=== PATIENT | male | born 1975 | race Caucasian/White ===

== ENCOUNTER 2018-04-27 19:03 | Emergency (ER) | payer MEDICAID ==
[~2018-04-27] VITALS: Ht 180.3 cm; Wt 79.5 kg
[2018-04-27 19:26] LABS: BASOPHILS # (AUTO) 0.1 X10'3 (0-0.2); BASOPHILS % (AUTO) 0.6 % (0-1); EOSINOPHILS # (AUTO) 0.1 X10'3 (0-0.9); EOSINOPHILS % (AUTO) 1.3 % (0-6); HEMATOCRIT 41.7 % (42.0-52.0); HEMOGLOBIN 14.2 g/dl (14.0-17.9); LYMPHOCYTES # (AUTO) 2.4 X10'3 (1.1-4.8); LYMPHOCYTES % (AUTO) 24.8 % (21-51); MEAN CORPUSCULAR HEMOGLOBIN 28.2 PG (27.0-31.0); MEAN CORPUSCULAR HGB CONC 33.9 % (33.0-36.5); MEAN CORPUSCULAR VOLUME 83.2 FL (78-98); MONOCYTES # (AUTO) 0.7 X10'3 (0-0.9); MONOCYTES % (AUTO) 7.4 % (2-12); NEUTROPHILS # (AUTO) 6.5 X10'3 (1.8-7.7); NEUTROPHILS % (AUTO) 65.9 % (42-75); PLATELET COUNT 233 X10'3 (140-440); RED BLOOD COUNT 5.02 X10'6 (4.70-6.10); RED CELL DISTRIBUTION WIDTH 13.8 % (11.5-14.5); WHITE BLOOD COUNT 9.9 X10'3 (4.5-11.0)
[2018-04-27 19:35] LABS: INR 0.9 INR; PARTIAL THROMBOPLASTIN TIME 27 SECONDS (22-32); PROTHROMBIN TIME 9.6 SECONDS (9.0-12.0)
[2018-04-27] MEDS ORDERED: acetaminophen 325mg tablet PO ONE (19:50)
[2018-04-27 19:51] LABS: ALANINE AMINOTRANSFERASE 19 U/L (12-78); ALBUMIN 3.5 G/DL (3.4-5.0); ALKALINE PHOSPHATASE 117 IU/L (46-116); ANION GAP 8 (8-16); ASPARTATE AMINO TRANSFERASE 22 U/L (10-37); BILIRUBIN,TOTAL 0.1 MG/DL (0.1-1.0); BLOOD UREA NITROGEN 13 MG/DL (7-18); BUN/CREATININE RATIO 11.5 (5.4-32.0); CALCIUM 8.9 MG/DL (8.5-10.1); CHLORIDE 105 MMOL/L (99-107); CREATININE 1.13 MG/DL (0.60-1.10); GLUCOSE 101 MG/DL (70-104); POTASSIUM 4.2 MMOL/L (3.5-5.1); SODIUM 138 MMOL/L (135-145); TOTAL CARBON DIOXIDE 24.7 MMOL/L (24-32); eGFR 71 ML/MIN
[2018-04-27 20:46] VITALS: BP 110/64
== END 2018-04-27 20:48 | disposition home or self-care (01) ==
LOC: ER 19:03
DX: R07.9 Chest pain, unspecified (principal); F17.200 Nicotine dependence, unspecified, uncomplicated; F12.90 Cannabis use, unspecified, uncomplicated; Z56.0 Unemployment, unspecified
CPT/HCPCS: 36415; 71045; 80053; 84484; 85025; 85610; 85730; 93005; 99285

== ENCOUNTER 2019-01-17 11:05 | Emergency (ER) | payer MEDICAID ==
[~2019-01-17] VITALS: Ht 180.3 cm; Wt 77.3 kg
[2019-01-17 11:47] LABS: BASOPHILS % (AUTO) 0.9 % (0-1); HEMATOCRIT 36.4 % (42.0-52.0); HEMOGLOBIN 12.2 g/dl (14.0-17.9); LYMPHOCYTES # (AUTO) 1.2 X10'3 (1.1-4.8); LYMPHOCYTES % (AUTO) 22.9 % (21-51); MEAN CORPUSCULAR HEMOGLOBIN 27.4 PG (27.0-31.0); MEAN CORPUSCULAR HGB CONC 33.6 g/dL (33.0-36.5); MEAN CORPUSCULAR VOLUME 81.4 FL (78-98); MEAN PLATELET VOLUME 6.9 FL (7.4-10.4); MONOCYTES # (AUTO) 0.7 X10'3 (0-0.9); NEUTROPHILS # (AUTO) 3.2 X10'3 (1.8-7.7); NEUTROPHILS % (AUTO) 62.2 % (42-75); PLATELET COUNT 225 X10'3 (140-440); RED BLOOD COUNT 4.48 X10'6 (4.70-6.10); RED CELL DISTRIBUTION WIDTH 14.1 % (11.5-14.5); WHITE BLOOD COUNT 5.1 X10'3 (4.5-11.0)
[2019-01-17 11:55] LABS: ALANINE AMINOTRANSFERASE 54 U/L (12-78); ALBUMIN 3.8 G/DL (3.4-5.0); ALBUMIN/GLOBULIN RATIO 1.1 (1.1-1.5); ALKALINE PHOSPHATASE 83 IU/L (46-116); ANION GAP 10 (8-16); ASPARTATE AMINO TRANSFERASE 49 U/L (10-37); BILIRUBIN,TOTAL 0.3 MG/DL (0.1-1.0); BLOOD UREA NITROGEN 22 MG/DL (7-18); BUN/CREATININE RATIO 21.4 (5.4-32.0); CALCIUM 9.1 MG/DL (8.5-10.1); CHLORIDE 102 MMOL/L (99-107); CREATININE 1.03 MG/DL (0.60-1.10); GLUCOSE 96 MG/DL (70-104); POTASSIUM 4.1 MMOL/L (3.5-5.1); SODIUM 139 MMOL/L (135-145); TOTAL CARBON DIOXIDE 27.2 MMOL/L (24-32); TOTAL PROTEIN 7.4 G/DL (6.4-8.2); eGFR 79 ML/MIN
[2019-01-17 12:03] LABS: ETHANOL < 0.010 GM/DL (0.0-0.010)
--- NOTE | 2019-01-17 12:35 | NUR ---
Patient was given a cup of water and sandwich. Patient took a quick drink of the water then he threw the cup on the floor. He took a large bite of the sandwich then he started smearing the sandwich on his face and in his hair.
[2019-01-17] MEDS ORDERED: diphenhydrAMINE 50 mg/ml inj IM ONE (12:45)
[2019-01-17] MEDS ORDERED: haloperidol lactate 5mg/ml inj IM ONE (12:45)
[2019-01-17] MEDS ORDERED: LORazepam 2 mg/ml vial IM ONE (12:45)
--- NOTE | 2019-01-17 12:50 | NUR ---
Patient refusing to give a urine sample
--- NOTE | 2019-01-17 14:19 | NUR ---
patient sleeping in room
[2019-01-17 14:40] LABS: CLARITY,URINE CLEAR (Clear); COLOR,URINE STRAW (Yellow); GLUCOSE, URINE NEGATIVE (Neg); KETONES,URINE NEGATIVE (Neg); LEUKOCYTE ESTERASE ,URINE TRACE (Neg); NITRITES, URINE NEGATIVE (Neg); OCCULT BLOOD,URINE NEGATIVE (Neg); PH,URINE 6.5 (4.8-8.0); PROTEIN,URINE NEGATIVE (Neg); UROBILINOGEN,URINE 0.2 E.U/dL (0.2-1.0)
[2019-01-17 14:43] LABS: UA COLLECTION TYPE STRAIGHT CATH
[2019-01-17 14:46] LABS: SQUAMOUS EPITHELIAL CELL,UR NONE SEEN /LPF (FEW)
[2019-01-17 14:47] LABS: BACTERIA,URINE FEW /HPF (Neg); RBC,URINE 0-2 /HPF (0-2); RENAL CELLS, URINE FEW /HPF; WBC,URINE 0-4 /HPF (0-4)
[2019-01-17 14:59] LABS: URINE AMPHETAMINE SCREEN POSITIVE (Neg); URINE BARBITUATE SCREEN NEGATIVE (Neg); URINE BENZODIAZEPINES SCREEN NEGATIVE (Neg); URINE CANNABINOID SCREEN POSITIVE (Neg); URINE COCAINE SCREEN NEGATIVE (Neg); URINE METHADONE SCREEN NEGATIVE (Neg); URINE OPIATE SCREEN NEGATIVE (Neg); URINE PHENCYCLIDINE SCREEN NEGATIVE (Neg)
--- NOTE | 2019-01-17 16:06 | NUR ---
Patient's mother is on the phone giving patients history. She states that the patient use to live [place] and he was on a very theraputic medication regimen. She states that he was on Haldol 1500 mg monthly and 10 mg daily, 1 mg benztropine daily. However since he moved up here his medications have been changed to invega and he he has been gravely disabled since the switch.
--- NOTE | 2019-01-17 16:30 | NUR ---
Behavioral health floor notified of patients status, history, current medications and prior medications.
--- NOTE | 2019-01-17 18:48 | NUR ---
PT SLEEPING AT THIS TIME. WILL CONTINUE TO MONITOR. NO DISTRESS NOTED AT THIS TIME. EQUAL RISE AND FALL OF CHEST.
--- NOTE | 2019-01-17 19:55 | NUR ---
PT UP OUT OF BED AND AMBULATORY TO RESTROOM - UPON RETURNING HE ASKS FOR FOOD. PT IS GIVEN SANDWICH, CHEESE STICK AND WATER. ATTEMPTED TO GIVE PT SOCKS HE IS BAREFOOTED AND FEET ARE DIRTY. PT DECLINES TO WEAR SOCKS AT THIS TIME. SOCKS LEFT AT BEDSIDE. [facility] AWARE THAT PT IS NOW AWAKE - THEY ARE WORKING ON WRITING HIS 0822
--- NOTE | 2019-01-17 21:34 | NUR ---
PT SLEEPING AT THIS TIME. WILL CONTINUE TO MONITOR. - PT WAS NOT COOPERATIVE WITH EARLIER ATTEMPT AT ASSESSMENT. HE DID NOT WANT TO ANSWER QUESTIONS AT THAT TIME.
--- NOTE | 2019-01-17 22:25 | NUR ---
NO NEEDS AT THIS TIME. PT CONTINUES TO SLEEP. PT FREQUENTLY SELF POSITIONS
--- NOTE | 2019-01-17 22:40 | NUR ---
[facility] CALLED FOR REPORT - INFO PROVIDED, THEY WILL CALL BACK
--- NOTE | 2019-01-18 01:35 | NUR ---
SPOKE AGAIN WITH [facility] - THEY WERE AGAIN GIVEN PT INFO. THEY WEREN'T AWARE SOMEONE HAD CALLED EARLIER. THEY STATED THEY WOULD GET BACK TO US IN THE MORNING TO SEE IF PT WAS A CANDIDATE.
--- NOTE | 2019-01-18 02:19 | NUR ---
pt continues to sleep. no distress noted. will continue to monitor.
[2019-01-18 04:28] VITALS: BP 122/68
--- NOTE | 2019-01-18 04:50 | NUR ---
PT AWAKENED AND WALKED TO BATHROOM THEN BACK TO BED. VITALS UPDATED.
--- NOTE | 2019-01-18 09:41 | NUR ---
pt is in bed supine, worried about a gas leak blowing up his house, he was assured that everything at home is ok, mom has been warned
--- NOTE | 2019-01-18 10:01 | NUR ---
SPOKE TO [facility] AT [facility], PT HAS BEEN ACCEPTED AT [facility], HE WILL BE PICKED UP IN ABOUT 45 MINS
--- NOTE | 2019-01-18 10:34 | NUR ---
pt is in bed holding tight to his BIBLE, NO S/S OF DISTRESS OBSERVED
== END 2019-01-18 11:09 ==
LOC: ER 11:05
DX: F25.0 Schizoaffective disorder, bipolar type (principal); F29 Unspecified psychosis not due to a substance or known physiological condition; F12.90 Cannabis use, unspecified, uncomplicated; Z56.0 Unemployment, unspecified
CPT/HCPCS: 36415; 80053; 80305; 80320; 81001; 84443; 85025; 96372; 99285; J1200; J1630; J2060; 51702

== ENCOUNTER 2020-09-21 10:05 | Emergency (ER) | payer MEDICAID ==
[~2020-09-21] VITALS: Ht 180.3 cm; Wt 75.0 kg
--- NOTE | 2020-09-21 10:52 | NUR ---
Pt given a urinal to obtain a urine sample. Pt threw the urinal across the room stating, "I ain't giving piss and I ain't giving blood".
[2020-09-21] MEDS ORDERED: LORazepam 2 mg/ml vial IM ONE (11:05)
[2020-09-21] MEDS ORDERED: diphenhydrAMINE 50 mg/ml inj IM ONE (11:05)
[2020-09-21] MEDS ORDERED: haloperidol lactate 5mg/ml inj IM ONE (11:05)
[2020-09-21 11:40] LABS: CLARITY,URINE CLEAR (Clear); COLOR,URINE YELLOW (Yellow); GLUCOSE, URINE NEGATIVE (Neg); KETONES,URINE 40 mg/dl (Neg); LEUKOCYTE ESTERASE ,URINE NEGATIVE (Neg); NITRITES, URINE NEGATIVE (Neg); OCCULT BLOOD,URINE SMALL (Neg); PROTEIN,URINE TRACE mg/dl (Neg)
--- NOTE | 2020-09-21 11:40 | NUR ---
Blood and urine obtained from pt and sent to the lab.
[2020-09-21 11:46] LABS: BASOPHILS % (AUTO) 0.4 % (0-1); EOSINOPHILS % (AUTO) 0.2 % (0-6); HEMATOCRIT 40.7 % (42.0-52.0); HEMOGLOBIN 13.6 g/dl (14.0-17.9); LYMPHOCYTES # (AUTO) 1.1 X10'3 (1.1-4.8); LYMPHOCYTES % (AUTO) 9.3 % (21-51); MEAN CORPUSCULAR HEMOGLOBIN 28.1 PG (27.0-31.0); MEAN CORPUSCULAR HGB CONC 33.5 g/dL (33.0-36.5); MEAN CORPUSCULAR VOLUME 83.9 FL (78-98); MEAN PLATELET VOLUME 6.6 FL (7.4-10.4); MONOCYTES # (AUTO) 1.1 X10'3 (0-0.9); MONOCYTES % (AUTO) 9.3 % (2-12); NEUTROPHILS # (AUTO) 9.5 X10'3 (1.8-7.7); NEUTROPHILS % (AUTO) 80.8 % (42-75); PLATELET COUNT 236 X10'3 (140-440); RED BLOOD COUNT 4.85 X10'6 (4.70-6.10); RED CELL DISTRIBUTION WIDTH 13.7 % (11.5-14.5); WHITE BLOOD COUNT 11.8 X10'3 (4.5-11.0)
[2020-09-21 11:47] LABS: UA COLLECTION TYPE URINAL
[2020-09-21 11:48] LABS: RBC,URINE 0-2 /HPF (0-2)
[2020-09-21 11:49] LABS: BACTERIA,URINE FEW /HPF (Neg); MUCUS STRANDS FEW /LPF (Neg); SQUAMOUS EPITHELIAL CELL,UR FEW /LPF (FEW)
[2020-09-21 11:54] LABS: URINE AMPHETAMINE SCREEN POSITIVE (Neg); URINE BARBITUATE SCREEN NEGATIVE (Neg); URINE BENZODIAZEPINES SCREEN NEGATIVE (Neg); URINE CANNABINOID SCREEN POSITIVE (Neg); URINE COCAINE SCREEN NEGATIVE (Neg); URINE METHADONE SCREEN NEGATIVE (Neg); URINE OPIATE SCREEN NEGATIVE (Neg); URINE PHENCYCLIDINE SCREEN NEGATIVE (Neg)
[2020-09-21 12:00] LABS: ALANINE AMINOTRANSFERASE 26 U/L (12-78); ALBUMIN 4.1 G/DL (3.4-5.0); ALBUMIN/GLOBULIN RATIO 1.2 (1.1-1.5); ALKALINE PHOSPHATASE 99 IU/L (46-116); ANION GAP 7 (8-16); ASPARTATE AMINO TRANSFERASE 34 U/L (10-37); BILIRUBIN,TOTAL 0.8 MG/DL (0.1-1.0); BLOOD UREA NITROGEN 24 MG/DL (7-18); BUN/CREATININE RATIO 25.8 (5.4-32.0); CALCIUM 9.5 MG/DL (8.5-10.1); CHLORIDE 104 MMOL/L (99-107); CREATININE 0.93 MG/DL (0.60-1.10); GLUCOSE 85 MG/DL (70-104); POTASSIUM 3.9 MMOL/L (3.5-5.1); SODIUM 139 MMOL/L (135-145); TOTAL CARBON DIOXIDE 27.7 MMOL/L (24-32); TOTAL PROTEIN 7.6 G/DL (6.4-8.2); eGFR 88 ML/MIN
[2020-09-21 12:11] LABS: ETHANOL < 0.010 GM/DL (0.0-0.010)
--- NOTE | 2020-09-21 12:31 | NUR ---
SLEEPING ON RIGHT SIDE, NO NEEEDS AT THIS TIME.
--- NOTE | 2020-09-21 13:20 | NUR ---
mom called and said pt received invega injection yesterday, he sees someone at on [facility], was at [facility] last year. call for ride if dc'd or transferred Shanika Ashley [phone]
--- NOTE | 2020-09-21 13:25 | NUR ---
sleeping on back
--- NOTE | 2020-09-21 16:04 | NUR ---
UP TO BATHROOM
--- NOTE | 2020-09-21 16:50 | NUR ---
sleeping on back
[2020-09-21] MEDS ORDERED: CEPH-572 PO (17:08)
[2020-09-21] MEDS ORDERED: cephalexin 500mg capsule PO ONE (17:10)
[2020-09-21 18:00] VITALS: BP 116/75
--- NOTE | 2020-09-21 18:20 | NUR ---
SPOKE WITH MOM, HER DAUGHTER WILL COUGAR [facility]UNTER PATIENT AT [phone].
--- NOTE | 2020-09-21 18:50 | NUR ---
Patient is sleeping on bed 23. We are awaiting family to pick him up. Family requests patient be kept here as they have concerns about his mental health. Patients mother (Sandra Ashley) states they can pick him up in the am at 0900 hours. Mother was advised that if we get new admits that we will have to send patient home by taxi [employer]. Mother was also advised that patient has been medically cleared for discharge. Mother states patient has a way into the residence if he is transported home.
--- NOTE | 2020-09-21 19:32 | NUR ---
A taxi has been called for this patient. He is resting quietly.
--- NOTE | 2020-09-21 20:09 | NUR ---
Patient discharged to home. He is in no distress, well oriented. Security escorted patient to taxi. Patients mother is expecting patient.
== END 2020-09-21 20:14 | disposition home or self-care (01) ==
LOC: ER 10:05
DX: F29 Unspecified psychosis not due to a substance or known physiological condition (principal); N39.0 Urinary tract infection, site not specified; F25.0 Schizoaffective disorder, bipolar type; F12.90 Cannabis use, unspecified, uncomplicated; F15.90 Other stimulant use, unspecified, uncomplicated; Z72.89 Other problems related to lifestyle; Z56.0 Unemployment, unspecified; Z79.2 Long term (current) use of antibiotics
CPT/HCPCS: 36415; 80053; 80305; 80320; 81001; 84443; 85025; 96372; 99285; J1200; J1630; J2060

== ENCOUNTER 2021-07-24 11:54 | Emergency (ER) | payer MEDICAID ==
[~2021-07-24] VITALS: Ht 177.8 cm; Wt 68.2 kg
[2021-07-24 12:02] VITALS: BP 119/76
[2021-07-24] MEDS ORDERED: haloperidol lactate 5mg/ml inj IM ONE (15:10)
== END 2021-07-24 15:41 | disposition home or self-care (01) ==
LOC: ER 11:54
DX: F20.9 Schizophrenia, unspecified (principal); F31.9 Bipolar disorder, unspecified; F12.90 Cannabis use, unspecified, uncomplicated; Z76.0 Encounter for issue of repeat prescription; Z72.89 Other problems related to lifestyle; Z56.0 Unemployment, unspecified
CPT/HCPCS: 93005; 96372; 99283; J1630